=== PATIENT | female | born 1985 | race Caucasian/White ===

== ENCOUNTER 2021-07-21 12:00 | Outpatient (RCR) | payer MEDICAID, SELFPAY ==
--- NOTE | 2021-05-04 13:20 | HP.PTEVAL ---
Patient's Visit Information LEXIE GENAO is a 35 year old F referred to Physical Therapy by MELISSA KAHN with a diagnosis of CHRONIC LBP WITH VAMSI SCIATICA AND LEFT LOWER QUADRANT PAIN.. Date of Evaluation: 05/04/21 Physical Therapist: Nataliia Smith, PT, Cert MDT - Visit Plan Frequency: 2-3x /Week Duration: 4-6 Weeks Plan: LOW BACK US, POSTURE CORRECTION/STRENGTHENING, INSTRUCTION IN APPROPRIATE BODY MECHANICS AND ACTIVITY MODIFICATIONS. DLS STARTING WITH A NEUTRAL SPINE PROGRESSING ROM TOLERATED. VAMSI LE ROM, STRETCHING AND STRENGTHENING. HEP INSTRUCTION. PATIENT MAY CONSIDER AQUATIC THERPAY IF LAND THERAPY DOES NOT WORK. - Subjective DX: CHRONIC LBP WITH VAMSI SCIATICA. Work/Leisure: UNEMPLOYEED. STAY AT HOME MOM. 5 KIDS RANGING IN AGE FROM 5 TO 17 YEARS OLD. Disability: NO. Present symptoms: VAMSI LOW BACK PAIN. VAMSI LE SHARP PAIN (NUMBNESS AND TINGLING IN BUTTOCKS) FROM HIPS INTO BUTTOCKS AND DOWN LEGS TO ANKLES. SOMETIMES ONE LEG OR THE OTHER AND SOMETIMES BOTH. Present since: ABOUT 2011 WHEN . Pain Scale: WORST 10/10, LEAST 3/10. Currently: 5/10. Commenced as a result of: . Symptoms at onset: RIGHT BUTTOCK PAIN WITH EACH STEP. Worse: EXERCISE, WALKING FOR TOO LONG, SITTING OR STANDING FOR TOO LONG. BENDING. LIFTING. VACUUMING. COLD WEATHER. Better: AM. STRETCHING HIPS. MASSAGE LOW BACK. IBUPROFEN. Disturbed sleep: YES. Previous history/Previous treatment: CHIROPRACTOR FOR ABOUT 6-8 WEEKS AND HELPED A LITTLE BIT BUT IT CAME RIGHT BACK (2018). NO BACK SURGERY. NO PT. Treatment this episode:04/12/21 FIRST GILBERTO - DID NOT HELP - NE. Coughing/sneezing/straining: NEGATIVE. Gait: IF I START WALKING IT IS NORMAL BUT WHEN I KEEP WALKING IT BRINGS THE PAIN ON AND I STRART LIMPING FROM SHOOTING PAINS. I TRY TO KEEP GOING. NO CANE OR WALKER. Difficulty initiating urination: NO. NO BOWEL LOSS OF BOWEL OR BLADDER CONTROL. Accidents: NO. Unexplained weight loss: NO. Imaging: RECENT X-RAY OF LOW BACK - UNREMARKABLE PER REPORT ON PATIENTS PHONE. PMH/Recent major surgery: NERVE DAMGE IN LEFT (JUNE 2020 PAIN STARTED). RIGHT ANKLE REPAIR A LONG TIME AGO. SCREW IN RIGHT BUNION. 4 C-SECTIONS. - Objective Sitting/Standing Posture: FAIR. Lordosis: NORMAL. Lateral shift: NO. Relevant shift: N/A. Active Correction of posture: WORSE. Other Observations: INDEP GAIT AND TRANSFERS. Motor deficit: VAMSI LE'S GROSSLY 5/5 WITH MMT'ING EXCEPT HIPS 4/15. Sensory deficit: VAMSI LE LIGHT TOUCH SENSATION INTACT AND SYMMETRICAL. ROM deficit: VAMSI LE'S WFL. Reflexes: 2/3 VAMSI LE'S. Dural Signs: POSITIVE LLE. Lumbar mvmt loss: flex - MIN. ext - MOD. R SG - MOD. L SG - MOD. PATIENT C/O INCREASED VAMSI LOW BACK PAIN WITH LUMBAR ROM TESTING ALL PLANES. Core strength: POOR. Palpation: TENDERNESS WITH LIGHT PALPATION THROUGHOUT LUMBAR, SI JOUNTS, PARASPINALS AND BUTTOCKS BILATERALLY. TREATMENT: NEUROMUSCULAR REEDUCATION - RETRAINING OF MVMT AND POSTURE FOR SITTING, LYING AND STANDING ACTIVITIES. - Balance/Special Test Scores Oswestry Low Back Score: 12 - Goals Goal 1:: DECREASE C/O LOW BACK AND VAMSI LE SX'S. Goal Time Frame: 4-6 Weeks Goal 2:: IMPROVE PERSONAL CARE, LIFTING, WLKING, SITTING, STANDING, SLEEP, TRAVEL AND HOMEMAKING FUNCTION. Goal Time Frame: 4-6 Weeks Goal 3:: INSTRUCT IN PROPHYLAXIS Goal Time Frame: 4-6 Weeks - Anticipated Interventions Patient/Client Instruction: Educate patient on: Condition, Plan of Care, Risk Factors For the Purpose of:: To improve self management Therapeutic Exercise to Include: Strength training, Body mechanics, Postural training, Flexibilty training, Neuromotor development, In an aquatic setting, Dynamic Lumbar Stabilization For the Purpose of:: To decrease pain, To increase ROM, To improve muscle performance and motor function, To increase tolerance to activity/condition/position, To improve ability of physical actions for home/community/work/leisure Cryotherapy (ice pack, ice massage): Yes Thermo therapy (hot pack): Yes Ultrasound (thermal/non thermal): Yes For the Purpose of:: To decrease pain, To improve nutrient delivery to tissue Thank you for the opportunity to evaluate your patient. For Medicare and Medicare HMO plans, please review the plan of care and approve it. It will need to be FAXED BACK to us at [phone] for Medicare purposes. For Medicare only, by signing this I certify the plan of care. Please let me know if there are questions or concerns regarding this plan of care. Physician Signature: Date:
== END 2021-07-21 19:00 | disposition home or self-care (01) ==
LOC: PT 12:00
DX: M54.42 Lumbago with sciatica, left side (principal); M54.41 Lumbago with sciatica, right side; G89.29 Other chronic pain; R10.32 Left lower quadrant pain
CPT/HCPCS: 97035; 97110; 97112; 97162; 97530

== ENCOUNTER → 2022-11-24 | Outpatient (CLI) | payer MEDICAID, SELFPAY ==
--- NOTE | 2022-11-24 15:40 | RAD_ITS ---
EXAM: XR SACRUM AND COCCYX, 2 OR MORE VIEWS CLINICAL INDICATION: Back pain TECHNIQUE: 3 views. AP sacrum, coccyx technique views and a lateral view. COMPARISON: No relevant prior studies available. FINDINGS: SACRUM/COCCYX: There is acute anterior angulation of the distal coccyx on the lateral view, with roughly 90 degrees angle but no obvious fracture, uncertain if this is fracture through the fibrous union. Please correlate with digital rectal exam. Prior exams not provided. The sacrum, SI joints, pubic symphysis, pubic rami and hips appear intact. No destructive or sclerotic lesions. Note that overlapping bowel shadows may however obscure fine detail in the frontal view. SOFT TISSUES: Unremarkable. No soft tissue swelling or gas. RAD/Sacrum-Coccyx min 2 Views IMPRESSION: Acute angulation of almost 90 degrees at the distal coccyx on the lateral view. Uncertain chronicity. Correlation with digital rectal exam is suggested to evaluate for motion at the coccyx tip if it is thought to be indicated. Electronically Signed: Melissa Rascon MD at 9:05 EDT ,
== END | disposition home or self-care (01) ==
LOC: MTRAD 15:39
PROVIDERS: PCP Family Medicine; Visit Provider Family Medicine
DX: M54.9 Dorsalgia, unspecified (principal)
CPT/HCPCS: 72220

== ENCOUNTER → 2023-02-27 | Outpatient (CLI) | payer MEDICAID, SELFPAY ==
[2023-02-27 15:12] LABS: Absolute Lymphocyte Count 2.31 X10^3/uL (0.83-4.51); Absolute Neutrophil Count 4.5 X10^3/uL (2.0-7.7); Basophil# 0.04 X10^3/uL; Basophil% 0.5 % (0-1); Eosinophils% 1.4 % (0-5); Hematocrit 43.6 % (37-47); Hemoglobin 13.8 g/dL (12.0-15.0); Lymphocyte # 2.31 X10^3/ul (0.83-4.51); Lymphocyte % 31.4 % (19-41); Mean Corp Hgb Conc 31.7 g/dL (32-36); Mean Corpuscular Hgb 28.6 pg (27.0-32.0); Mean Corpuscular Volume 90.5 fL (81-99); Mean Platelet Vol. 12.9 fl (6.2-12.0); Monocyte# 0.42 X10^3/uL; Monocyte% 5.7 % (0-10); NRBC Flagged by Analyzer 0 % (0-5); Neutrophil # 4.47 X10^3/uL (2.7-7.7); Neutrophil % 60.7 % (47-70); Platelet Count 183 K/mm3 (150-450); RBC Distribution Width CV 13.7 % (11.6-14.6); RBC Distribution Width SD 45.9 fl (35.1-43.9); Red Blood Count 4.82 M/mm3 (4.2-5.4); White Blood Count 7.4 K/mm3 (4.4-11.0)
[2023-02-27 16:02] LABS: Vitamin D,25 Hydroxy 50.7 ng/mL
[2023-02-27 16:13] LABS: AST(SGOT) 13 U/L (15-37); Alanine Aminotransfer ALT/SGPT 20 U/L (13-56); Albumin, Serum 3.6 g/dL (3.2-5.0); Alkaline Phosphatase 84 U/L (45-117); Anion Gap 7 (5-15); BUN 6 mg/dL (7-18); BUN/Creat Ratio 9.7 RATIO (10-20); Calcium,Total 8.8 mg/dL (8.5-10.1); Chloride 107 mmol/L (98-107); Creatinine, Serum 0.62 mg/dL (0.55-1.02); EST Glomerular Filtration Rate 116 mL/min (>60); Est Glom Filt Rate - Afr Amer 141 mL/min (>60); Globulin 3.6 g/dL (2.2-4.2); Glucose 98 mg/dL (74-106); Potassium 3.6 mmol/L (3.5-5.1); Protein, Total 7.2 g/dL (6.4-8.2); Sodium Level 138 mmol/L (136-145); Thyroid Stim Hormone (TSH) 0.73 uIU/mL (0.358-3.74)
== END | disposition home or self-care (01) ==
PROVIDERS: PCP Family Medicine; Visit Provider Family Medicine
DX: Z13.228 Encounter for screening for other metabolic disorders (principal); R53.83 Other fatigue
CPT/HCPCS: 36415; 80053; 82306; 84443; 85025

== ENCOUNTER 2023-03-02 13:00 | Outpatient (RCR) | payer MEDICAID, SELFPAY ==
--- NOTE | 2023-01-20 13:28 | HP.PTEVAL ---
Patient's Visit Information Visit Information Visit Information: LEXIE GENAO is a 37 year old F referred to Physical Therapy by Dr. Gino Wild DO with a diagnosis of LOW BACK PAIN AND LUMBAR HERNIATED DISC. Date of Evaluation: 01/20/23 Physical Therapist: Nataliia Smith, PT, Cert MDT Visit Plan Frequency: 2-3x /Week Duration: 4-6 Weeks Plan: *CHECK AUTH NEXT VISIT: RECORD # OF VISITS APPROVED AND EXPIRATION DATE. CHECK CODES APPROVED WITH POC* AQUATIC THERAPY FOR PAIN RELIEF, POSTURE CORRECTION/STRENGTHENING, INSTRUCTION IN APPROPRIATE BODY MECHANICS AND ACTIVITY MODIFICATIONS. DLS STARTING WITH A NEUTRAL SPINE PROGRESSING ROM TOLERATED. VAMSI LE ROM, STRETCHING AND STRENGTHENING. HEP INSTRUCTION. Subjective Subjective: DX: CHRONIC LBP WITH VAMSI SCIATICA. Work/Leisure: UNEMPLOYEED. STAY AT HOME MOM. 5 KIDS RANGING IN AGE FROM 7 TO 19 YEARS OLD. Disability: NO. Present symptoms: VAMSI LOW BACK PAIN. VAMSI LE SHARP PAIN (NUMBNESS AND TINGLING IN BUTTOCKS) FROM HIPS INTO BUTTOCKS AND DOWN LEGS TO ANKLES. SOMETIMES ONE LEG OR THE OTHER AND SOMETIMES BOTH. PATIENT STATES SHE ISN'T SURE IF THE ELECTRIC SHOCK GOES FAR DOWN HER FEET/TOES OR NOT. Present since: ABOUT 2011 WHEN . Pain Scale: WORST 10/10, LEAST 3/10. Currently: 3/10. Commenced as a result of: . Symptoms at onset: RIGHT BUTTOCK PAIN WITH EACH STEP. Worse: WHEN I GET MY PERIOD I CAN'T WALKEXERCISE, WALKING FOR TOO LONG, SITTING OR STANDING FOR TOO LONG. BENDING. LIFTING. VACUUMING. COLD WEATHER. Better: NOTHING. Disturbed sleep: YES. Previous history/Previous treatment: CHIROPRACTOR FOR ABOUT 6-8 WEEKS AND HELPED A LITTLE BIT BUT IT CAME RIGHT BACK (2018). NO BACK SURGERY. 04/12/21 FIRST GILBERTO - DID NOT HELP - NE. PT 2021. Coughing/sneezing/straining: POSITIVE Gait: IF I START WALKING IT IS NORMAL BUT WHEN I KEEP WALKING IT BRINGS THE PAIN ON AND I STRART LIMPING FROM SHOOTING PAINS. I TRY TO KEEP GOING. NO CANE OR WALKER. Difficulty initiating urination: ABLE TO URINATE BUT CAUSES STOMACH AND BACK PAIN. NO LOSS OF BOWEL OR BLADDER CONTROL. Accidents: NO. Unexplained weight loss: NO. Imaging: RECENT X-RAY OF LOW BACK - UNREMARKABLE. PMH/Recent major surgery: NERVE DAMAGE IN LEFT (JUNE 2020 PAIN STARTED). RIGHT ANKLE REPAIR A LONG TIME AGO. SCREW IN RIGHT BUNION. 4 C-SECTIONS. OTHER: PATIENT REPORTS SHE STILL DOES WHAT SHE WAS TAUGHT IN THERAPY LAST YEAR AND IT HELPS TEMPORARILY BUT IF SHE MOVES ONE LITTLE BIT WRONG THE PAIN COMES RIGHT BACK. Objective Objective: Sitting/Standing Posture: FAIR. Lordosis: NORMAL. Lateral shift: NO. Relevant shift: N/A. Active Correction of posture: WORSE. Other Observations: INDEP GAIT AND TRANSFERS. Motor deficit: VAMSI LE'S GROSSLY 5/5 WITH MMT'ING EXCEPT R HIP 4/5 AND L 4-/5. Sensory deficit: VAMSI LE LIGHT TOUCH SENSATION INTACT AND SYMMETRICAL. ROM deficit: VAMSI LE'S WFL BUT C/O L LBP WITH L HIP IR/ER TESTING. Reflexes: 2/3 VAMSI LE'S. Dural Signs: POSITIVE VAMSI LE'S L>R. Lumbar mvmt loss: flex - MIN. ext - KATIE R SG - MOD. L SG - MOD. PATIENT C/O INCREASED VAMSI LOW BACK PAIN WITH LUMBAR ROM TESTING ALL PLANES ESPECIALLY LUMBAR EXTENSION. Core strength: POOR. Palpation: TENDERNESS WITH LIGHT PALPATION THROUGHOUT LUMBAR, SI JOUNTS, PARASPINALS AND BUTTOCKS BILATERALLY. OTHER: DISCUSSED THE POSSIBLE BENEFITS OF AQUATIC THERAPY WITH PATIENT AND SHE IS AGREEABLE. Balance/Special Test Scores Oswestry Low Back Score: 19 Goals Goal 1:: DECREASE C/O LOW BACK AND VAMSI LE SX'S. Goal Time Frame: 4-6 Weeks Goal 2:: IMPROVE PERSONAL CARE, LIFTING, WALKING, SITTING, STANDING, SLEEP, SOCIAL LIFE, TRAVEL AND HOMEMAKING FUNCTION. Goal Time Frame: 4-6 Weeks Goal 3:: INSTRUCT IN PROPHYLAXIS Goal Time Frame: 4-6 Weeks Anticipated Interventions Patient/Client Instruction: Educate patient on: Condition, Plan of Care and Risk Factors For the Purpose of:: To improve self management Therapeutic Exercise to Include: Strength training, Body mechanics, Postural training, Flexibilty training, Neuromotor development, In an aquatic setting and Dynamic Lumbar Stabilization For the Purpose of:: To decrease pain, To increase ROM, To improve muscle performance and motor function, To increase tolerance to activity/condition/position and To improve ability of physical actions for home/community/work/leisure Text: Thank you for the opportunity to evaluate your patient. For Medicare and Medicare HMO plans, please review the plan of care and approve it. It will need to be FAXED BACK to us at [phone] for Medicare purposes. For Medicare only, by signing this I certify the plan of care. Please let me know if there are questions or concerns regarding this plan of care. Physician Signature: Date:
--- NOTE | 2023-03-02 13:29 | HP.PTDCSUM ---
Discharge Summary D/C summary: It has been my pleasure to treat LEXIE GENAO referred by Dr. Gino Wild DO, with the diagnosis of LOW BACK PAIN AND LUMBAR HERNIATED DISC for a total of 7 visit(s). Discharge Date: Please see the following information for a summary of their discharge status. Subjective Subjective: PATIENT REPORTS WHEN SHE GETS IN THE WATER THE PRESSURE IS LESS BUT WHEN SHE STARTS MOVING IT TRIGGERS SHOOTING PAINS TO HER LEGS L>R. IT ALSO INCREASES HER BACK PAIN. IT IS THE SAME THING ON LAND - THE MORE SHE MOVES, THE MORE PAIN SHE GETS IN HER BACK AND LEGS. JUST TRYING TO DO GROCERY SHOPPING EXHAUSTS HER. OVER-ALL PATIENT REPORTS SHE IS NO BETTER AND NO WORSE. Pain LBP: Pain Intensity (Out of 10): 4 L LE: Pain Intensity (Out of 10): 5 R LE: Pain Intensity (Out of 10): 0 Overall Improvement % Improvement: 0 Objective Objective/Function: PATIENT WAS SEEN TODAY FOR RE-ASSESSMENT OF PROGRESS TOWARD THE SET PT GOALS AND THE NEED FOR FURTHER PHYSICAL THERAPY VS READINESS FOR DISCHARGE. PATIENT IS NOT IMPROVING. PHYSICIAN RE-ASSESSMENT RECOMMENDED. PATIENT AGREEABLE. THIS IS THE SECOND TIME PATIENT HAS TRIED PT. THE FIRST TIME SHE TRIED LAND PT (2021) AND THIS TIME SHE TRIED AQUATIC THERAPY WITHOUT BENEFIT. UPON EXAM TODAY THERE ARE NO SIGNIFICANT CHANGES COMPARED TO INTIAL EVAL. Goals Goal 1:: DECREASE C/O LOW BACK AND VAMSI LE SX'S. Goal Progress: Not Progressing Goal 2:: IMPROVE PERSONAL CARE, LIFTING, WALKING, SITTING, STANDING, SLEEP, SOCIAL LIFE, TRAVEL AND HOMEMAKING FUNCTION. Goal Progress: Not Progressing Goal 3:: INSTRUCT IN PROPHYLAXIS Goal Progress: Not Progressing Plan Plan: D/C DUE TO LACK OF PROGRESS. PATIENT AGREEABLE. D/C Information d/c sentence: If there are questions or concerns regarding this patient's physical therapy, please feel free to call me at [phone]. Thank you for the referral of this patient. Sincerely, Nataliia Smith, PT, Cert MDT Balance/Gait/Functional tests Balance/Special Test Scores Oswestry Low Back Score: 19 Improvement % Improvement: 0
== END 2023-03-02 14:03 | disposition home or self-care (01) ==
LOC: PT 13:00
PROVIDERS: PCP Family Medicine; Referring Provider Orthopaedic Surgery; Visit Provider Orthopaedic Surgery
DX: M51.27 Other intervertebral disc displacement, lumbosacral region (principal); M54.50 Low back pain, unspecified
CPT/HCPCS: 97113; 97162; 97164

== ENCOUNTER → 2023-04-01 | Outpatient (CLI) | payer MEDICAID, SELFPAY ==
--- NOTE | 2023-04-01 07:36 | MRI_ITS ---
STUDY: MRI LUMBAR SPINE WITHOUT CONTRAST REASON FOR EXAM: Female, 37 years old. LOW BACK pain INTO LEGS TECHNIQUE: Standardized fat and water weighted pulse sequences were obtained in the sagittal and axial planes. COMPARISON: X-ray the lumbar spine dated December 22, 2022 FINDINGS: Normal lumbar lordosis. There is no substantial scoliosis. Normal conus medullaris that terminates at the T12 level. No marrow edema or fracture or compression deformity is present. T12-L1: Normal endplates. Normal disc height, hydration and morphology. Normal bilateral facet joints. Normal central canal and bilateral lateral recesses. Normal bilateral intervertebral neural foramina. L1-2: Normal endplates. Normal disc height, hydration and morphology. Normal bilateral facet joints. Normal central canal and bilateral lateral recesses. Normal bilateral intervertebral neural foramina. L2-3: Normal endplates. Normal disc height, hydration and morphology. Mild left facet joint hypertrophy. Normal right facet joint. Normal central canal and bilateral lateral recesses. Normal bilateral intervertebral neural foramina. L3-4: Normal endplates. Normal disc height, hydration and morphology. Mild left facet joint hypertrophy. Normal right facet joint. Normal central canal and bilateral lateral recesses. Normal bilateral intervertebral neural foramina. L4-5: Normal endplates. Normal disc height, hydration and morphology. Normal bilateral facet joints. Normal central canal and bilateral lateral recesses. Normal bilateral intervertebral neural foramina. L5-S1: Normal endplates. Normal disc height, hydration and morphology. Normal bilateral facet joints. Normal central canal and bilateral lateral recesses. Congenitally/developmental a short bilateral L5 pedicles. Mild bilateral foraminal stenosis is present. Normal visualized sacral ala. Normal visualized paraspinous soft tissue structures. MRI/Spine Lumbar (Routine) IMPRESSION: 1. Mild degenerative changes, as described above. 2. Normal central canal. Electronically Signed: Eyad Cates MD at 10:28 EST ,
== END | disposition home or self-care (01) ==
LOC: MRI 07:20
PROVIDERS: PCP Family Medicine; Referring Provider Orthopaedic Surgery; Visit Provider Orthopaedic Surgery
DX: M51.27 Other intervertebral disc displacement, lumbosacral region (principal)
CPT/HCPCS: 72148

== ENCOUNTER → 2023-12-13 | Outpatient (CLI) | payer MEDICAID, SELFPAY ==
[2023-12-13 17:56] LABS: AST(SGOT) 17 U/L (15-37); Alanine Aminotransfer ALT/SGPT 23 U/L (13-56); Albumin, Serum 3.6 g/dL (3.2-5.0); Alkaline Phosphatase 87 U/L (45-117); Anion Gap 5 (5-15); BUN 11 mg/dL (7-18); BUN/Creat Ratio 12.7 RATIO (10-20); Calcium,Total 8.8 mg/dL (8.5-10.1); Chloride 110 mmol/L (98-107); Creatinine, Serum 0.87 mg/dL (0.55-1.02); EST Glomerular Filtration Rate 78 mL/min (>60); Est Glom Filt Rate - Afr Amer 94 mL/min (>60); Globulin 3.5 g/dL (2.2-4.2); Glucose 74 mg/dL (74-106); Potassium 3.9 mmol/L (3.5-5.1); Protein, Total 7.1 g/dL (6.4-8.2); Sodium Level 139 mmol/L (136-145); Thyroid Stim Hormone (TSH) 0.355 uIU/mL (0.358-3.740)
== END | disposition home or self-care (01) ==
LOC: MFPLAB 16:33
PROVIDERS: PCP Family Medicine; Visit Provider Family Medicine
DX: I95.9 Hypotension, unspecified (principal); L65.9 Nonscarring hair loss, unspecified
CPT/HCPCS: 36415; 80053; 84443

== ENCOUNTER → 2023-12-28 | Outpatient (CLI) | payer MEDICAID, SELFPAY ==
--- NOTE | 2023-12-28 12:21 | US_ITS ---
STUDY: THYROID ULTRASOUND REASON FOR EXAM: Female, 38 years old. Low TSH TECHNIQUE: Ultrasound evaluation of the thyroid was performed with real-time and static luna-scale imaging. COMPARISON: None. FINDINGS: RIGHT LOBE: The right lobe of the thyroid gland measures 5.2 x 1.8 x 1.4 cm. There is a homogeneous echotexture. Nodule 1:15 x 10 x 10 mm solid hypoechoic wider than tall ill-defined margin nodule with punctate echogenic foci (TR 5) in the posterior right lobe for which ultrasound-guided biopsy is recommended. Nodule 2:13 x 9 x 9 mm solid isoechoic wider than tall ill-defined margin nodule with no echogenic foci (TR 3) in the inferior right lobe consistent with an adenoma. LEFT LOBE: The left lobe of the thyroid gland measures 4.9 x 1.7 x 1.0 cm. There is a homogeneous echotexture. Nodule 3:13 x 8 x 10 mm solid hypoechoic wider than tall smoothly marginated nodule with no echogenic foci (TR 4) in the mid left lobe of the and follow-up ultrasound is recommended in one year. ISTHMUS: The isthmus measures 2 mm thick. . The regional lymph nodes are normal. US/Thyroid IMPRESSION: Multinodular thyroid gland with a dominant nodule right lobe for which ultrasound-guided biopsy is recommended. Follow-up ultrasound is recommended in one year. Electronically Signed: Ruslan Lomas MD at 11:33 EDT ,
[2023-12-28 14:32] LABS: Free T3 2.4 pg/mL (2.18-3.98); T4 Free Direct 0.86 ng/dL (0.76-1.46)
[2024-01-01 13:07] LABS: ANTINUCLEAR ANTIBODIES DIRECT Negative (Negative)
[2024-01-02 09:09] LABS: Thyroglobulin Antibody < 1.0 IU/mL (0.0-0.9); Thyroid Peroxidase AB < 9 IU/mL (0-34)
== END | disposition home or self-care (01) ==
PROVIDERS: PCP Family Medicine; Referring Provider Family Medicine; Visit Provider Family Medicine
DX: R79.89 Other specified abnormal findings of blood chemistry (principal)
CPT/HCPCS: 36415; 76536; 84439; 84445; 84481; 86038; 86376; 86800

== ENCOUNTER 2024-06-06 06:05 | Day surgery (SDC) | payer MEDICAID, SELFPAY ==
[2024-06-06] VITALS (9 sets, daily range): BP systolic 99–109; BP diastolic 60–79; PULSE 61–78; RESP 16–18; TEMP 36–36.8; O2SAT 98–100; BMI 25.9
--- NOTE | 2024-06-06 | EMB_PTH ---
PATIENT: LEXIE GLEZ [place] [facility] [place][id number] AGE/SX: 38/F ROOM: RE06/06/[address]: Dr. Shae Peters DO : 1985 BED: DIS: 06/06/2024 SPEC #: [id number] RECD: 06/06/24 13:24 STATUS: IAN CARYL #: [id number] IRASEMA: 06/06/24 00:[address]: Shae Peters DEPT: SURGICAL PATHOLOGY RECD BY: Jorge Hein ENTERED: 06/06/24 13:24 SP TYPE: ENDOM BX/C ALLA DR: Serene Nix MD Tissues: Endometrium, NOS Procedures: Surgery Specimen Level IV HEADER OPERATION: Hysteroscopy, D&C, resection of fibroid PRE-OP DIAGNOSIS: Dysfunctional uterine bleeding, uterine fibroids TISSUE SUBMITTED: Endometrial curettings MICROSCOPIC DIAGNOSIS Endometrial curettings: Early secretory endometrium. Fragments of endocervical mucosa with chronic inflammation and squamous metaplasia. See comment. 06/07/2024 COMMENT Myometrial/smooth muscle tissue is not seen in the specimen. Correlation with clinical findings and appropriate follow up are necessary. MICROSCOPIC DESCRIPTION Slides are reviewed. GROSS DESCRIPTION Received in fixative is one container labeled with the patient's name and designated Endometrial curettings. The specimen consists of multiple irregular fragments of hemorrhagic soft tissue that in aggregate measure 5 x 3 x 0.2 cm. The specimen is totally submitted in two cassettes. 06/06/2024 TC:5 CPT:79333
--- NOTE | 2024-06-06 07:01 | PCM.PRE.AN2 ---
ASA Classification* ASA Classification ASA Classification: 2 (Smoker, Thyroid Dx.) Assessment & Plan Anesthesia* Anesthesia Assessment Anesthesia Assessment: Discussed sedation and/or anesthesia options, risks, benefits, and alternatives with patient/parents/legal guardian/POA. Questions invited. The patient/parents/legal guardian/POA seems to understand and agrees to proceed with anesthesia plan. Reviewed the physical assessment, medical history, allergy history and patient home medications list prior to surgery/procedure/anesthetic and documented any changes. Performed airway and anesthesia risk assessments. Anesthesia Type Anesthesia Type: General and MAC History Source History Obtained from:: Patient and Chart Anesthesia Focused Assessment* Temperature: 97.5 F Pulse Rate: 78 Blood Pressure: 101/68 Respiratory Rate: 16 Pulse Ox: 100 Oxygen Delivery Method: Room Air Airway Assessment Mouth opens: >3 cm Mallampati Score: I Teeth Condition: Intact Neck Range of motion (ROM): Full ROM Focused Labs Anesthesia Preop lab: CBC WBC 7.4 K/mm3 (4.4-11.0) 02/27/23 14:05 02/27/23 RBC 4.82 M/mm3 (4.2-5.4) 02/27/23 14:05 02/27/23 Hgb 13.8 g/dL (12.0-15.0) 02/27/23 14:05 02/27/23 Hct 43.6 % (37-47) 02/27/23 14:05 02/27/23 Plt Count 183 K/mm3 (150-450) 02/27/23 14:05 02/27/23 CHEMISTRY Potassium 3.9 mmol/L (3.5-5.1) 12/13/23 16:33 12/13/23 Sodium 139 mmol/L (136-145) 12/13/23 16:33 12/13/23 BUN 11 mg/dL (7-18) 12/13/23 16:33 12/13/23 Creatinine 0.87 mg/dL (0.55-1.02) 12/13/23 16:33 12/13/23 Glucose 74 mg/dL (74-106) 12/13/23 16:33 12/13/23 TSH 0.355 uIU/mL (0.358-3.740) L 12/13/23 16:33 12/13/23 COAG Urine Test Pending 06/06/24 06:45 06/06/24 Pre-Assessment Diagnosis/Proposed Procedure Planned Operative Procedure(s): Hysteroscopy,D&C, resection of fibroid, Symphion Anesthesia History 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 When Was Last Pacemaker Check QUESTION #4 FULL TEXT: You/Your Family Experience fever (hyperthermia) with Anesthesia Any additional information?: No Last Oral Intake Last Oral intake: Last Oral Intake NPO since 00:00 06/06/24 06:33 Meds taken in AM with sips of water? Meds patient instructed to take am of surgery Any additional information?: No PONV PONV - learning design specialist: PONV - learning design specialist Female Yes 05/23/24 14:29 HX of Motion Sickness Yes 05/23/24 14:29 HX of N/V After Surgery Yes 05/23/24 14:29 Non-Smoker No 05/23/24 14:29 Duration of Surgery greater No 05/23/24 14:29 than 60 minutes Number of Risk Factors 3 05/23/24 14:29 PONV Score Moderate Risk 05/23/24 14:29 Any additional information?: No Height & Weight Height & Weight: Anesthesia: Height & Weight Height 5 ft 6 in 06/06/24 06:33 Weight: 73.028 kg 06/06/24 06:33 Body Mass Index (BMI) 25.9 06/06/24 06:33 Respiratory Assessment Respiratory Assessment - learning design specialist: Respiratory Tract Infection Hx - learning design specialist Hx Respiratory Tract Infection No 05/23/24 14:29 Any additional information?: No STOP Sleep Apnea STOP Sleep Apnea - learning design specialist: STOP Sleep Apnea - learning design specialist Hx Hypertension No 05/23/24 14:29 Hx Sleep Apnea No 05/23/24 14:29 CPAP BIPAP Do you snore loudly (louder No 05/23/24 14:29 than talking or can be heard Do you often feel tired/ No 05/23/24 14:29 fatigued/ sleepy during daytime? Has anyone observed you stop No 05/23/24 14:29 breathing during sleep? STOP Results Negative 05/23/24 14:29 QUESTION #5 FULL TEXT : Do you snore loudly (louder than talking or can be heard through closed doors)? 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 Specify any problems Hx of Preganancy in last 3 N/A 05/23/24 14:29 Months Nurse Filling Out Transfusion NBUCHER 05/23/24 14:29 & Questions: Date: 05/23/24 05/23/24 14:29 Time: 14:31 05/23/24 14:29 Patient unable to answer at this time (ie. confused, unrespo Any additional information?: No /Reproduction History /Reproductive History - learning design specialist: /Reproductive Hx- learning design specialist Hx Now No 05/23/24 14:29 Gestational Age (in weeks): EDC: Hx Hx Para Hx Section SAB No 05/23/24 14:29 Any additional information?: No Active Medications Active Medications: Current Medications Generic Name Dose Route Start Last Admin Trade Name Freq PRN Reason Stop Dose Admin Levonorgestrel 1 each 06/06/24 07:30 Levonorgestrel Iud (Liletta) INTRA-UTER 06/06/24 07:31 X1 ONE PFSH Medical History (Updated 05/23/24 @ 14:36 by Gogo Urrutia) Thyroid disease Anemia Migraine headache Smoker History of echocardiogram Home Medications ?Medication ?Instructions ?Recorded ?Last Taken ?Type cholecalciferol (vitamin D3) 25 50 mcg PO DAILY 05/23/24 06/05/24 History mcg (1,000 unit) capsule ferrous sulfate 324 mg (65 mg 324 mg PO QODAY 05/23/24 06/05/24 History iron) tablet,delayed release minoxidil 2.5 mg tablet 2.5 mg PO DAILY 05/23/24 06/05/24 History phentermine 37.5 mg tablet 18.75 mg PO DAILY 05/23/24 06/05/24 History vit no.95-ferrous 1 tab PO DAILY 05/23/24 06/05/24 History fumarate 28 mg-folic acid 800 mcg tablet () spironolactone 50 mg tablet 50 mg PO BID 05/23/24 06/05/24 History Allergy/AdvReac Type Severity Reaction Status Date / Time No Known Allergies Allergy Verified 06/06/24 06:31 Family History Father Myocardial infarction Diabetes Hypertension Brother Cancer Diabetes Mother Arthritis Surgical History History of bunionectomy H/O breast implant History of section History of appendectomy H/O foot surgery Social History Smoking Status: Current every day smoker tobacco type: cigarettes alcohol intake: never Review of Systems (Anesthesia) ROS Narrative System reviewed and no additional complaints, except as documented. Physical Exam Const alert, oriented x3 and average body habitus Orientation / Consciousness: awake HEENT dentition normal Resp normal respiratory effort, normal air movement and clear to auscultation bilaterally Auscultation: clear to auscultation bilaterally Cardio regular rate, regular rhythm and no murmurs Neuro oriented x3 and moves all extremities
[2024-06-06 07:03] LABS: Internal QC Validated? YES +Cl - CLEAR BKGD; Pregnancy, Urine Negative Negative
[2024-06-06 07:19] LABS: Hematocrit 38.7 % (37-47); Mean Corp Hgb Conc 33.6 g/dL (32-36); Mean Corpuscular Hgb 29.4 pg (27.0-32.0); Mean Corpuscular Volume 87.6 fL (81-99); Mean Platelet Vol. 12.6 fl (6.2-12.0); Platelet Count 179 K/mm3 (150-450); RBC Distribution Width CV 13.2 % (11.6-14.6); RBC Distribution Width SD 42.7 fl (35.1-43.9); Red Blood Count 4.42 M/mm3 (4.2-5.4); White Blood Count 7.5 K/mm3 (4.4-11.0)
[2024-06-06] MEDS: Lidocaine 1% /Epi 1:100 (20ml) 20 ML Vial (07:46)
--- NOTE | 2024-06-06 07:59 | PCM.DC ---
Discharge Instructions Diet Discharge Diet: No restrictions DC O2, CPAP, BIPAP needs Home O2 Discharge instructions: No Dressing / Incision Discharge Activity: May Drive (once you are more than 24 hours out from surgery) and May Shower (once you are more than 24 hours out from surgery) May resume sexual activity in: 1 week (nothing in the vagina and no soaking in water for 1 week) Weight Bearing Status: Weight bearing as tolerated Lifting Restrictions: none Dressing / Incision Call your doctor if you observe: Fever of 101 or Higher, Coldness, Increased Pain, Numbness or Tingling, Inability to urinate, Inability to have a bowel movement, Using more than 1 pad per hour, Shortness of breath, Dizziness, Swelling in the ankles, Chest pain, Increased palpitations (irregular heartbeat), Calf discomfort and Uncontrolled pain Cleanse incision/area with: Soap & Water Follow Up Care Please Follow Up With: Shae Peters DO When: 1-2 week post op Test Results: Test results from this visit will be discussed in further detail at your follow-up appointment, if applicable. Discharge Plan Admission Primary Reason for Your Visit: surgery Attending Provider: Shae Peters Primary Care Provider: Serene Nix Instructions Print Language: Sammarinese Discharge Orders/Prescriptions Prescriptions: Continued phentermine 37.5 mg tablet 18.75 mg PO DAILY minoxidil 2.5 mg tablet 2.5 mg PO DAILY spironolactone 50 mg tablet 50 mg PO BID cholecalciferol (vitamin D3) 25 mcg (1,000 unit) capsule 50 mcg PO DAILY ferrous sulfate 324 mg (65 mg iron) tablet,delayed release (DR/EC) 324 mg PO QODAY PNV cmb#95-ferrous fumarate-FA [] 28 mg iron- 800 mcg tablet 1 tab PO DAILY Referrals / Follow Up: Serene Nix MD [Primary Care Provider] - Disposition Disposition (needs filled in before D/C Order can be placed): Home, Self Care
--- NOTE | 2024-06-06 08:01 | PCM.OPRPT ---
Problems Associated Problem List Diagnoses (1) DUB (dysfunctional uterine bleeding): (2) Fibroid uterus: Operative Report (Standard) Operative Information Date of Procedure: 06/06/24 Pre-Operative Diagnosis: DUB, fibroid uterus Post-Operative Diagnosis: As above Surgery/Procedure Performed: Hysteroscopy, partial resection of fibroid, D&C ferry captain: No Type of Anesthesia: MAC RN Documented Start/Stop Times: Operation Date: 06/06/24 07:30 Case Time Into Pre-Op 06/06/24 06:15 Out of Pre-Op 06/06/24 07:24 Anesthesia Start 06/06/24 07:25 Into Room 06/06/24 07:25 Procedure Start 06/06/24 07:43 Procedure End 06/06/24 07:55 Procedure Start Time: 07:43 Procedure Stop Time: 07:55 Select all DRAINS/GRAFTS/IMPLANTS that apply: None Special Medications: None Estimated Blood Loss: < 20 mL Fluids Replaced: 250 mL deficit Specimen collected: Yes Description of specimen(s) removed: Endometrial curettings Description of surgery: The patient was taken to the operating room where MAC anesthesia was found to be adequate. She was prepped and draped in the dorsal lithotomy position using yellowfin stirrups. A weighted speculum was placed in the vagina to expose the cervix. The anterior lip of the cervix was grasped with single-tooth tenaculum. The cervix was serially dilated to accommodate the Symphion hysteroscope. The Symphion hysteroscope was advanced into the uterus and the uterus was distended with normal saline as distention media. Bilateral tubal ostia were visualized. Pictures were taken. A fibroid was noted along the anterior surface of the uterus on the patient's left side. Less than 50% of the fibroid was in the cavity of the uterus. The resection device was used to resect the portion of the fibroid that was intracavitary. The Symphion device was then removed. A sharp curettage was performed. The partial fibroid that was resected and the endometrial curettings were sent to pathology for review. All instruments were removed from the vagina. Bleeding was scant. A vaginal sweep was performed. Instrument sponge counts were correct. The patient was taken to the recovery in stable addition. Surgical Findings: Normal appearing endometrium. Uterus sounded to 8 cm. A 1 cm anterior fibroid was noted with less than 50% of the fibroid in the cavity. Complications Complications: No Admit VTE Documentation VTE Present on Admission: No VTE Mechan Device Prophylaxis: SCD's
--- NOTE | 2024-06-06 08:05 | PCM.POST.ANE ---
Anesthesia: Postop Eval I Current Vital Signs Temperature: 96.8 F Pulse Rate: 78 Blood Pressure: 100/60 Respiratory Rate: 18 Pulse Ox: 98 Oxygen Delivery Method: Room Air Assessment Airway patent: Yes Spontaneous unlabored respirations: Yes Mental status: Asleep nausea: No Vomiting: No Anesthesia Complication: No Fluid Hydration Crystalloid volume administer (ml): 50 Total IV fluid infused: 50 Progress Note Anesthesia document: Postop Eval 1 completed: Yes
[2024-06-06] MEDS: Acetaminophen 325 MG Tablet 650 MG PO (09:03)
--- NOTE | 2024-06-06 18:47 | POSTOPAN2_ITS ---
Anesthesia Postop Eval I Sum Postop Eval Completion status Anesthesia document: Postop Eval 1 completed: Yes Anesthesia Postop Eval I Summary Anesthesia Postop Eval I Summary: Anesthesia Postop Eval I: Assessment Summary Airway patent Yes 06/06/24 08:06 [email or web address] Spontaneous unlabored Yes 06/06/24 08:06 [email or web address] respirations Mental status Asleep 06/06/24 08:06 [email or web address] nausea No 06/06/24 08:06 [email or web address].[email or web address] Vomiting No 06/06/24 08:06 [email or web address] Anesthesia Postop Eval I: Fluid Summary Crystalloid volume administer 50 06/06/24 08:06 [email or web address] (ml) Colloids volume administered ( ml) Blood Product volume administered (ml) Total IV fluid infused 50 06/06/24 08:06 [email or web address] Anesthesia Postop Eval I: Summary Notes Anesthesia Complication No 06/06/24 08:06 [email or web address] Anesthesia Complication Comment: Post-operative progress note Anesthesia: Postop Eval II Evaluation Mental status: Awake and Calm Pain Level: 1 nausea: No Vomiting: No Complications Anesthesia Complication: No
--- NOTE | 2024-06-06 18:47 | PCM.POSTANE2 ---
Anesthesia Postop Eval I Sum Postop Eval Completion status Anesthesia document: Postop Eval 1 completed: Yes Anesthesia Postop Eval I Summary Anesthesia Postop Eval I Summary: Anesthesia Postop Eval I: Assessment Summary Airway patent Yes 06/06/24 08:06 [email or web address] [email or web address] Spontaneous unlabored Yes 06/06/24 08:06 [email or web address] [email or web address] respirations Mental status Asleep 06/06/24 08:06 DICTAPHONE [email or web address] nausea No 06/06/24 08:06 DICTAPHONE [email or web address].[email or web address] Vomiting No 06/06/24 08:06 DICTAPHONE [email or web address] Anesthesia Postop Eval I: Fluid Summary Crystalloid volume administer 50 06/06/24 08:06 DICTAPHONE [email or web address] (ml) Colloids volume administered ( ml) Blood Product volume administered (ml) Total IV fluid infused 50 06/06/24 08:06 DICTAPHONE [email or web address].[email or web address] Anesthesia Postop Eval I: Summary Notes Anesthesia Complication No 06/06/24 08:06 DICTAPHONE [email or web address] Anesthesia Complication Comment: Post-operative progress note Anesthesia: Postop Eval II Evaluation Mental status: Awake and Calm Pain Level: 1 nausea: No Vomiting: No Complications Anesthesia Complication: No
== END 2024-06-06 10:07 | disposition home or self-care (01) ==
LOC: SDC 06:06 → AC 06:07
PROVIDERS: Anesthesiology; PCP Family Medicine; Referring Provider Obstetrics & Gynecology; Visit Provider Obstetrics & Gynecology
PROC: 0UB98ZZ Excision of Uterus, Via Natural or Artificial Opening Endoscopic (ICD-10-PCS; CPT 58558; principal; 2024-06-06 07:15)
DX: D25.9 Leiomyoma of uterus, unspecified (principal); N93.8 Other specified abnormal uterine and vaginal bleeding; Z98.51 Tubal ligation status; F17.210 Nicotine dependence, cigarettes, uncomplicated; N83.209 Unspecified ovarian cyst, unspecified side
CPT/HCPCS: 58561; 00952; 81025; 85027; 86850; 86900; 86901; 88305; A4216; J2405

== ENCOUNTER → 2024-08-05 | Outpatient (CLI) | payer MEDICAID, SELFPAY ==
--- NOTE | 2024-08-05 17:15 | US_ITS ---
PROCEDURE: THYROID (USTHY), 08/05/2024 REASON FOR EXAM: THYROID NODULES TECHNIQUE: Grayscale and color Doppler imaging of the thyroid was performed. COMPARISON: None FINDINGS: Right lobe measures 4.9 x 1.6 x 1.5cm. Essentially homogeneous background echotexture. No abnormal vascularity. Nodules as below: *Upper pole, 7 x 7 x 5 mm, solid, partially mildly hypoechoic, TI-RADS 4 *Midgland, 11 x 9 x 9 mm, solid, hypoechoic with macrocalcifications, TI-RADS 4 *Lower pole, 12 x 9 x 8 mm, mostly solid, minimally hypoechoic, TI-RADS 4 *Midgland, 7 x 6 x 4 mm, solid, hypoechoic, TI-RADS 4 *Additional smaller nodules. Left lobe measures 4.5 x 1.1 x 1.1 cm. Essentially homogeneous background echotexture. No abnormal vascularity. Nodules as below: *Upper pole, 6 x 4 x 4 mm, mostly solid, hypoechoic, TI-RADS 4 *Upper pole, 12 x 8 x 8 mm, mostly solid, isoechoic, TI-RADS 3 *Lower pole, 7 x 4 x 4 mm, mostly solid, mildly hypoechoic, TI-RADS 4 *Additional smaller nodules. Isthmus measures 1 mm in thickness. US/Thyroid IMPRESSION: 1. Assessment is TI-RADS 4. No nodules currently meet criteria for FNA. Follow -up is recommended in 1 year per the below. 2. Normal size gland with essentially unremarkable background echotexture. No abnormal vascularity. Management recommendations for TI-RADS 3 findings: FNA if = 2.5 cm; Follow if = 1.5 cm at 1, 3, and 5 years. Management recommendations for TI-RADS 4 findings: FNA if = 1.5 cm; Follow if = 1 cm at 1, 2, 3, and 5 years. Recommendations per ACR Thyroid Imaging, Reporting and Data System (TI-RADS): Bhavesh mcdonough Paper of the ACR TI-RADS Committee, 2017 ([email or web address]) Reading Location: [id number]
== END | disposition home or self-care (01) ==
LOC: US 17:13
PROVIDERS: PCP Family Medicine; Referring Provider Nurse Practitioner Family; Visit Provider Nurse Practitioner Family
DX: E04.1 Nontoxic single thyroid nodule (principal)
CPT/HCPCS: 76536

== ENCOUNTER → 2024-08-05 | Outpatient (CLI) | payer MEDICAID, SELFPAY ==
[2024-08-05 18:38] LABS: Free T3 2.9 pg/mL (2.18-3.98); Thyroid Stim Hormone (TSH) 0.663 uIU/mL (0.300-4.200)
== END | disposition home or self-care (01) ==
LOC: MTLAB 16:36
PROVIDERS: PCP Family Medicine; Referring Provider Nurse Practitioner Family; Visit Provider Nurse Practitioner Family
DX: E04.1 Nontoxic single thyroid nodule (principal)
CPT/HCPCS: 36415; 76536; 84439; 84443; 84481